=== PATIENT | male | born 1990 | race Caucasian/White ===

== ENCOUNTER 2016-12-14 09:51 | Emergency (ER) | payer OTHER ==
[2016-12-14] MEDS ORDERED: Ketorolac INJ* 60 MG/2 ML VIAL IM ONE (10:16)
[2016-12-14] MEDS ORDERED: Ondansetron ODT TAB* 4 MG PO ONE (10:17)
[2016-12-14 10:20] VITALS: BP 114/61
--- NOTE | 2016-12-14 10:32 | UC ---
Headache HPI - HPI Summary HPI Summary: pt presents with c/o headache that he woke with a headache. Pt has history of Migraines. Pt reports that he vomited 4-5 times this morning, took 2 tablets of "remaining zofran" and now has c/o of mild nausea and light sensitivity. denies fever or chills. - History Of Current Complaint Chief Complaint: UCHeadache Stated Complaint: HEADACHES VOMITING Time Seen by Provider: 12/14/16 10:01 Hx Obtained From: Patient Onset/Duration: Sudden Onset, Lasting Hours Onset Of Symptoms: Sudden, Still Present - imporved since onset Initially Headache Was: Moderate Currently Pain Is: Mild Timing: Constant Character: Dull, Migraine Location of Headache: Temporal, Parietal Aggravating Factor: Bright Lights Allevating Factors: Rest, Medication Associated Signs And Symptoms: Positive: Nausea, Vomiting Related History: Similar Episode/DX As: - migraine - Risk Factors SDH Risk Factors: Male - Allergies/Home Medications Allergies/Adverse Reactions: Allergies Allergy/AdvReac Type Severity Reaction Status Date / Time No Known Allergies Allergy Verified 12/14/16 10:05 Home Medications: Home Medications Dynblau-[id number]-[id number] [Excedrin Migraine 250-250-65 mg] 2 tab PO PRN [History] PMH/Surg Hx/FS Hx/Imm Hx Previously Healthy: Yes Other History Of: Negative For: HIV, Hepatitis B, Hepatitis C - Surgical History Surgical History: None Surgery Procedure, Year, and Place: denies - Family History Known Family History: Positive: Hypertension, Diabetes Negative: Cardiac Disease - Social History Alcohol Use: Occasionally Substance Use Type: Marijuana Substance Use Comment - Amount & Last Used: daily Smoking Status (MU): Heavy Every Day Tobacco Smoker Type: Cigarettes Amount Used/How Often: 1/2 ppd Length of Time of Smoking/Using Tobacco: since age 18 Have You Smoked in the Last Year: Yes - Immunization History Most Recent Influenza Vaccination: none Review of Systems Constitutional: Negative Skin: Negative Eyes: Photophobia ENT: Negative Respiratory: Negative Cardiovascular: Negative Gastrointestinal: Negative Genitourinary: Negative Motor: Negative Neurovascular: Negative Musculoskeletal: Negative Neurological: Headache Psychological: Negative All Other Systems Reviewed And Are Negative: Yes Physical Exam Triage Information Reviewed: Yes Appearance: Well-Appearing Vital Signs: Initial Vital Signs Temp 97.5 F 12/14/16 09:57 Pulse 51 12/14/16 09:57 Resp 16 12/14/16 09:57 BP 114/61 12/14/16 09:57 Pulse Ox 98 12/14/16 09:57 Eye Exam: Normal ENT Exam: Normal Neck exam: Normal Respiratory Exam: Normal Cardiovascular Exam: Normal Musculoskeletal Exam: Normal Neurological Exam: Normal Psychological Exam: Normal Skin Exam: Normal Headache Course/Dx - Differential Dx/Diagnosis Differential Diagnosis/HQI/PQRI: Migraine, Tension Headache Provider Diagnoses: Migraine Discharge - Discharge Plan Condition: Stable Disposition: HOME Prescriptions: Ibuprofen TAB* [Motrin TAB* 800 MG] 800 mg PO Q8H PRN #15 tab PRN Reason: Headache Ondansetron HCl [Zofran 8 MG TAB] 8 mg PO Q8H PRN #12 tab PRN Reason: Nausea Patient Education Materials: Acute Headache (ED) Forms: *Work Release Referrals: No Primary Care Phys,NOPCP [Primary Care Provider] -
== END 2016-12-14 10:55 | disposition home or self-care (01) ==
LOC: UCCORT 09:51
DX: G43.909 Migraine, unspecified, not intractable, without status migrainosus (principal); R11.2 Nausea with vomiting, unspecified; F12.90 Cannabis use, unspecified, uncomplicated; F17.210 Nicotine dependence, cigarettes, uncomplicated
CPT/HCPCS: 96372; 99212; A9270-GY; G0463; J1885

== ENCOUNTER 2023-09-26 21:34 | Inpatient (IN) ==
[2023-09-26 22:53] LABS: Urine Appearance Clear; Urine Bilirubin Negative (Negative); Urine Blood Negative (Negative); Urine Color Yellow; Urine Glucose Negative (Negative); Urine Ketones Negative (Negative); Urine Nitrite Negative (Negative); Urine Protein Negative (Negative); Urine Specific Gravity 1.019 (1.002-1.030); Urine Urobilinogen Negative (Negative)
[2023-09-26 22:59] LABS: Urine Bacteria Absent /HPF (Absent); Urine Red Blood Cell 2+(6-10/hpf) /HPF (0-Trace); Urine Squamous Epithelial Cell Present /HPF (Absent); Urine White Blood Cell 3+(>20/hpf) /HPF (0-Trace)
[2023-09-26 23:10] LABS: Urine Benzodiazepine Screen None Detected (None Detect); Urine Cannabinoids Screen None Detected (None Detect); Urine Opiates Screen None Detected (None Detect)
[2023-09-27] MEDS: Haloperidol 5 mg/ml SDV IV/IM 5 MG/ML AMP IM ONE (01:12)
[2023-09-27] MEDS: LORazepam 2 mg VIAL 1 ml IM ONE (01:12)
[2023-09-27 02:31] LABS: ABS Basophils 0.1 10^3/uL (0.0-0.1); ABS Eosinophils 0.1 10^3/uL (0.0-0.5); ABS Lymphocytes 2.1 10^3/uL (1.0-4.8); ABS Monocytes 0.8 10^3/uL (0.0-1.1); ABS Neutrophils 5.6 10^3/uL (1.5-7.6); ABS Nucleated RBC 0.01 10^3/ul; Eosinophil % 0.6 %; Hematocrit 41.4 % (38-53); Hemoglobin 14.2 g/dL (13.2-16.3); Lymphocyte % 24.6 %; Mean Corpuscular Hemoglobin 29.2 pg (27-33); Mean Corpuscular Hgb Conc 34.2 g/dL (31-36); Mean Corpuscular Volume 85.2 fL (80-97); Mean Platelet Volume 7.5 fL (7.5-11.2); Nucleated Red Blood Cells % 0.1 %/100WBC (0.0-0.8); Platelet Count 327 10^3/uL (150-450); Red Blood Count 4.86 10^6/uL (4.06-5.63); Red Cell Distribution Width 13.4 % (12-17); White Blood Count 8.7 10^3/uL (3.6-10.2)
[2023-09-27] MEDS ORDERED: Al Hydrox/Mg Hydrox/Simet LIQ 30 ML UDC PO PRN (02:44)
[2023-09-27 02:54] LABS: ALT 10 U/L (7-52); AST 17 U/L (13-39); Acetaminophen < 15 mcg/mL; Albumin 4.2 g/dL (3.2-5.2); Albumin/Globulin Ratio 1.7 (1-3); Alcohol, S < 13 mg/dL (<13); Alkaline Phosphatase 59 U/L (35-149); Anion Gap 8 mmol/L (2-16); Blood Urea Nitrogen 9 mg/dL (6-24); CO2 Carbon Dioxide 28 mmol/L (22-32); Calcium 9.8 mg/dL (8.6-10.3); Chloride 100 mmol/L (101-111); Globulin 2.5 g/dL (2-4); Glucose 97 mg/dL (70-100); Potassium 4.3 mmol/L (3.5-5.0); Salicylate < 2.50 mg/dL (<30); Sodium 136 mmol/L (135-145); Total Bilirubin 0.6 mg/dL (0.2-1.0); Total Protein 6.7 g/dL (6.4-8.9); eGFR CKD-EPI 101.3 (>60)
[2023-09-27 02:55] LABS: HDL Cholesterol 67.1 mg/dL
[2023-09-27 03:09] LABS: TSH Ultra Thyroid Stim Horm 3.01 mcIU/mL (0.34-5.60)
[2023-09-27] MEDS: Vitamin THERAPEUTIC TAB PO SCH (09:12)
[2023-09-27] MEDS ORDERED: Nicotine GUM 4MG FRUIT FLAVOR PO PRN (16:39)
[2023-09-27] MEDS: risperiDONE-M 1 mg Oradis TAB PO SCH (23:17)
[2023-09-28 09:03] VITALS: BP 136/81
[2023-09-28] MEDS: Nicotine PATCH 21 MG/24 HR PATCH TRANSDERM SCH (10:00)
== END 2023-09-29 11:57 | disposition home or self-care (01) | DRG 776 ==
LOC: ED 21:34 → EDHOLD 09-27 01:11 → BSU 09-27 08:21
PROVIDERS: ADMIT Psychiatry & Neurology Psychiatry; ATTEND Psychiatry & Neurology Psychiatry